=== PATIENT | male | born 1985 | race Caucasian/White ===

== ENCOUNTER 2023-01-20 10:25 | Emergency (ER) | payer SELFPAY ==
[~2023-01-20] VITALS: Ht 167.6 cm; Wt 90.0 kg
[2023-01-20 10:35] VITALS: BP 137/75; PULSE 72; RESP 20; TEMP 98.4; O2SAT 99
[2023-01-20] MEDS ORDERED: KETOROLAC 30 MG/ML VIAL IM ONE (12:20)
[2023-01-20] MEDS ORDERED: KETOROLAC 30 MG/ML VIAL ONE (13:27)
[2023-01-20] MEDS ORDERED: CAPS1ADH5 TP (13:51)
[2023-01-20] MEDS ORDERED: NAPR-1704 PO (13:51)
--- NOTE | 2023-01-20 13:57 | NUR ---
The patient's care was reviewed and supervised by HEDY GOOD RN.
--- NOTE | 2023-01-20 13:57 | NUR ---
Patient discharged with v/s stable. Written and verbal after care instructions given and explained. Patient alert, oriented and verbalized understanding of instructions. Ambulatory with steady gait. All questions addressed prior to discharge. ID band removed. Patient advised to follow up with PMD. Rx of CAPSAICIN/MENTHOL, NAPROXEN given. Patient educated on indication of medication including possible reaction and side effects. Opportunity to ask questions provided and answered.
== END 2023-01-20 13:57 | disposition home or self-care (01) ==
LOC: MED 10:25
DX: S39.012A Strain of muscle, fascia and tendon of lower back, initial encounter (principal); X58.XXXA Exposure to other specified factors, initial encounter; Y93.89 Activity, other specified; Y92.89 Other specified places as the place of occurrence of the external cause; Y99.8 Other external cause status
CPT/HCPCS: 72110; 96372; 99283; J1885